=== PATIENT | female | born 1955 | race Hispanic/Latino ===

== ENCOUNTER 2017-02-18 17:20 | Observation (INO) | payer MEDICARE, OTHER ==
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
[2017-02-18 20:30] LABS: RBC URINE 17 /hpf (0-3); URINE BACTERIA FEW (<OCC); URINE BILIRUBIN NEGATIVE (NEGATIVE); URINE BLOOD SMALL (NEGATIVE); URINE COLOR YELLOW (YELLOW); URINE GLUCOSE (UA) NEG (Normal); URINE KETONE NEGATIVE (NEGATIVE); URINE LEUKOCYTE ESTERASE NEG Leu/uL (Negative); URINE PROTEIN 30 mg/dL (NEGATIVE); URINE UROBILINOGEN 0.2-1.0 mg/dL (0.2-1.0); WBC URINE 2 /hpf (0-5)
--- NOTE | 2017-02-18 20:35 | ED PDOC ---
- Laboratory Results Result Diagrams: 02/18/17 22:42 02/18/17 22:42 - ECG ECG: Positive for: Viewed By Me (reviewed by ED attending) ECG Rhythm: Positive for: Sinus Rhythm O2 Sat by Pulse Oximetry: 99 Pulse Ox Interpretation: Normal - Radiology X-Ray: Viewed By Me X-Ray Interpretation: No Acute Disease Medical Decision Making Medical Decision Making: Patient medically stable for psych transfer Disposition - Clinical Impression Clinical Impression: Psychoses - POA Present On Arrival: None - Disposition Disposition: Other Institution ([facility]) Disposition Time: 04:37 Condition: STABLE ED OBSERVATION Date of observation admission: 02/18/17 Time of observation admission: 20:00 - Observation admission statement Patient is being placed in observation because:: paranoia - Goals of Observation Goals of observation are:: obtain [facility] eval - Progress Note Progress Note: 02/18/17 20:34 patient resting comfortably; pending labs 02/19/17 22:30 Patient awake, resting comfortably 00:30 Patient sleeping 2:30 Patient sleeping 4:30 Patient evaluated and accepted by [facility]
[2017-02-18 22:46] LABS: HEMATOCRIT 38.1 % (34.0-47.0); MEAN CELL VOLUME 93.5 fl (81.0-99.0); MEAN CORPUSCULAR HGB CONC 33.2 g/dL (33.0-37.0); RED CELL DISTRIBUTION WIDTH 12.5 % (11.5-14.5)
[2017-02-18 23:02] LABS: ALB/GLOB RATIO 1.2 (1.0-2.1); ALCOHOL SERUM < 10 mg/dl (0-10); ALKALINE PHOSPHATASE 70 U/L (38-126); ALT/SGPT 25 U/L (9-52); AST/SGOT 25 U/L (14-36); BILIRUBIN,TOTAL 0.4 mg/dl (0.2-1.3); BLOOD UREA NITROGEN 17 mg/dl (7-17); CARBON DIOXIDE 27 mmol/L (22-30); CHLORIDE 103 mmol/L (98-107); GFR AFRICAN-AMERICAN > 60; GLUCOSE,RANDOM 88 mg/dL (65-105); POTASSIUM 3.8 MMOL/L (3.6-5.0); SODIUM 145 mmol/l (132-148); TOTAL PROTEIN 7.2 G/DL (6.3-8.2)
--- NOTE | 2017-02-19 05:46 | ED PDOC ---
- Laboratory Results Result Diagrams: 02/18/17 22:42 02/18/17 22:42 - ECG O2 Sat by Pulse Oximetry: 99 Medical Decision Making Medical Decision Making: pt recd pending bed at [facility]. Cooperative in ED. Will endorse to Dr Haq pending bed availability. Disposition Counseled Patient/Family Regarding: Studies Performed, Diagnosis - Clinical Impression Clinical Impression: Psychoses - POA Present On Arrival: None - Disposition Disposition: Transfer of Care Disposition Time: 06:55 Condition: STABLE
--- NOTE | 2017-02-19 07:08 | CARD ---
APPROVED REPORT EKG Measurement Heart [id number] [id number] <Conclusion> Normal sinus rhythm Possible Left atrial enlargement Left ventricular hypertrophy Abnormal ECG
--- NOTE | 2017-02-19 07:14 | ED PDOC ---
- Laboratory Results Result Diagrams: 02/18/17 22:42 02/18/17 22:42 - ECG O2 Sat by Pulse Oximetry: 99 Medical Decision Making Medical Decision Making: Time: 0700 Patient signed out by Dr. Angel pending [facility] bed availability. Patient has been cleared and accepted by [facility] Scribe Attestation: Documented by Linda Hunt acting as a scribe for Heriberto Haq MD MD Scribe Attestation: All medical record entries made by the Scribe were at my direction and personally dictated by me. I have reviewed the chart and agree that the record accurately reflects my personal performance of the history, physical exam, medical decision making, and the department course for this patient. I have also personally directed, reviewed, and agree with the discharge instructions and disposition. Disposition - Clinical Impression Clinical Impression: Psychoses - POA Present On Arrival: None - Disposition Disposition: Transfer of Care Disposition Time: 15:00 Condition: FAIR Patient Signed Over To: Angelica Soria Handoff Comments: pending bed at [facility].
--- NOTE | 2017-02-19 09:50 | RAD ---
HISTORY: clearance COMPARISON: Comparison is made to the previous study dated 08/08/2023 FINDINGS: LUNGS: No evidence of new infiltrate or consolidation in the lungs. Hyperinflation of the lungs is again noted. PLEURA: No significant pleural effusion identified, no pneumothorax apparent. CARDIOVASCULAR: The cardiac silhouette is prominent in size. OSSEOUS STRUCTURES: No significant abnormalities. VISUALIZED UPPER ABDOMEN: Normal. OTHER FINDINGS: None. IMPRESSION: No active disease. No significant interval change.
--- NOTE | 2017-02-19 13:02 | CP.PCM.CON ---
History of Present Illness - History of Present Illness History of Present Illness: psychiatry consult ordered by: er per protocol reason: psychosis cc: i am fine hpi: pt with schizophrenia and multiple admits to [facility]. brought to [place] by mobile outreach after concerns with neighbors regarding pt's behavior, which seems to be an ongoing issue. pt presented and paranoid, delusional and with impaired insight/judgment. she refused voluntary admisssion. currently she is aware of her pending transfer to [facility] and calming sitting in an er room. pt does not wish to offer any information and states she is fine and without any psychiatric problems. past psych: as above. she denies taking medications. substance abuse: denies and uds is negative social history: as per screening note. lives in . housing, disruptive. medical: cleared for transfer to [facility] mse: alert, oriented x 3. mood is anxious. affect constricted. paranoid. guarded. denies si/hi. denies a/v hallucinations at this time. she has recent reports of paranoid delusions and threatening behaviors with poor impulse control. poor i/j assessment: schizophrenia paranoid type recommendation: transfer to [facility] when bed available. Past Patient History - Past Social History Alcohol: None Drugs: Denies - CARDIAC Hx Hypertension: No - PULMONARY Hx Tuberculosis: No - NEUROLOGICAL Hx Seizures: No - HEMATOLOGICAL/ONCOLOGICAL Hx Human Immunodeficiency Virus (HIV): No - GENITOURINARY/GYNECOLOGICAL Hx Sexually Transmitted Disorders: No - PSYCHIATRIC Hx Depression: Yes Hx Paranoia: Yes Hx Schizophrenia: Yes - SURGICAL HISTORY Hx Section: Yes Hx Herniorrhaphy: Yes - ANESTHESIA Hx Anesthesia: Yes Hx Anesthesia Reactions: No Meds Allergies/Adverse Reactions: Allergies Allergy/AdvReac Type Severity Reaction Status Date / Time iodine Allergy RASH Verified 02/18/17 17:24 Results - Vital Signs Recent Vital Signs: Last Vital Signs Temp 98.3 F 02/19/17 07:35 Pulse 68 02/19/17 07:35 Resp 18 02/19/17 07:35 BP 121/60 02/19/17 07:35 Pulse Ox 98 02/19/17 07:35 - Labs Result Diagrams: 02/18/17 22:42 02/18/17 22:42 Labs: Laboratory Results - last 24 hr 02/18/17 02/18/17 20:20 22:42 WBC 6.0 RBC 4.07 Hgb 12.6 Hct 38.1 MCV 93.5 MCH 31.0 MCHC 33.2 RDW 12.5 Plt Count 193 Sodium 145 Potassium 3.8 Chloride 103 Carbon Dioxide 27 Anion Gap 19 BUN 17 Creatinine 0.6 L Est GFR ( Amer) > 60 Est GFR (Non-Af Amer) > 60 Random Glucose 88 Calcium 9.0 Total Bilirubin 0.4 AST 25 ALT 25 Alkaline Phosphatase 70 Total Protein 7.2 Albumin 4.0 Globulin 3.2 Albumin/Globulin Ratio 1.2 Urine Opiates Screen Negative Urine Methadone Screen Negative Ur Barbiturates Screen Negative Ur Phencyclidine Scrn Negative Ur Amphetamines Screen Negative U Benzodiazepines Scrn Negative U Oth Cocaine Metabols Negative U Cannabinoids Screen Negative Alcohol, Quantitative < 10
[2017-02-19 23:14] VITALS: RESP 16
--- NOTE | 2017-02-20 02:58 | ED PDOC ---
- Laboratory Results Result Diagrams: 02/18/17 22:42 02/18/17 22:42 - ECG O2 Sat by Pulse Oximetry: 97 Medical Decision Making Medical Decision Making: Patient s/o from Dr. Soria at 0000 pending [facility] screening. Patient is stable on re-evaluation. Patient s/o to Dr. Angel at 0700 pending admission to [facility]. Scribe Attestation: Documented by Palma Cheatham acting as a scribe for Ben Fernandez MD. Provider Scribe Attestation: All medical record entries made by the Scribe were at my direction and personally dictated by me. I have reviewed the chart and agree that the record accurately reflects my personal performance of the history, physical exam, medical decision making, and the department course for this patient. I have also personally directed, reviewed, and agree with the discharge instructions and disposition. Disposition - Clinical Impression Clinical Impression: Psychoses - POA Present On Arrival: None - Disposition Disposition: Transfer of Care Disposition Time: 07:00 Condition: STABLE Patient Signed Over To: Emory Angel III Handoff Comments: pending [facility] screening
--- NOTE | 2017-02-20 07:12 | ED PDOC ---
- Laboratory Results Result Diagrams: 02/18/17 22:42 02/18/17 22:42 <Radha Adams - Last Filed: 02/20/17 11:42> - Laboratory Results Result Diagrams: 02/18/17 22:42 02/18/17 22:42 - ECG O2 Sat by Pulse Oximetry: 99 <Emory Angel III - Last Filed: 02/20/17 11:49> Medical Decision Making <Radha Adams - Last Filed: 02/20/17 11:42> <Emory Angel III - Last Filed: 02/20/17 11:49> Medical Decision Making: Urine culture specimen shows likely contaminated sample. Lab recommends second culture is sent which was collected from patient. (Radha Adams) Time: 0700 Patient signed out by Dr. Fernandez pending bed availability at [facility] Transport in ED [id number] to transport to [facility]. UCx returned likely contaminant, re-ordered. Scribe Attestation: Documented by Linda Hunt acting as a scribe for Emory Angel DO MD Scribe Attestation: All medical record entries made by the Scribe were at my direction and personally dictated by me. I have reviewed the chart and agree that the record accurately reflects my personal performance of the history, physical exam, medical decision making, and the department course for this patient. I have also personally directed, reviewed, and agree with the discharge instructions and disposition. (Emory Angel III) Disposition <Radha Adams - Last Filed: 02/20/17 11:42> - POA Present On Arrival: None - Disposition Disposition: Other Institution ([facility]) Disposition Time: 11:40 <Emory Angel III - Last Filed: 02/20/17 11:49> - Clinical Impression Clinical Impression: Psychoses - Disposition Condition: STABLE
[2017-02-20 11:03] VITALS: BP 129/83; PULSE 74; TEMP 97.9
[2017-02-20 11:04] VITALS: O2SAT 99
== END 2017-02-20 11:49 | disposition short-term general hospital (02) ==
LOC: H.ER 17:20 → H.EROBSV 20:00 → INTOOBSV 20:00
PROVIDERS: ADMIT Emergency Medicine; ATTEND Emergency Medicine
DX: F20.0 Paranoid schizophrenia (principal); Z00.8 Encounter for other general examination
CPT/HCPCS: 36415; 71010; 80053; 81003; 85027; 87086; 93005; 99285; G0378; G0480

== ENCOUNTER 2018-02-08 15:26 | Inpatient (IN) | payer MEDICARE, MEDICAID ==
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
[2018-02-08 18:37] LABS: SQUAMOUS EPITHIAL < 1 /hpf (0-5); URINE BILIRUBIN NEGATIVE (NEGATIVE); URINE BLOOD NEGATIVE (NEGATIVE); URINE CLARITY CLOUDY (Clear); URINE COLOR AMBER (YELLOW); URINE GLUCOSE (UA) NEG (Normal); URINE LEUKOCYTE ESTERASE NEG Leu/uL (Negative); URINE PROTEIN 100 mg/dL (NEGATIVE); URINE UROBILINOGEN 0.2-1.0 mg/dL (0.2-1.0)
[2018-02-08 18:39] LABS: BASO % 0.4 % (0.0-2.0); EOS # 0.1 K/uL (0.0-0.7); EOS % 1.2 % (0.0-4.0); HEMOGLOBIN 12.9 g/dL (12.0-16.0); LYMPH # 0.9 K/uL (1.0-4.3); LYMPH % 15.8 % (20.0-40.0); MEAN CORPUSCULAR HEMOGLOBIN 31.1 pg (27.0-31.0); MEAN CORPUSCULAR HGB CONC 33.1 g/dL (33.0-37.0); MEAN PLATELET VOLUME 7.7 fl (7.2-11.7); MONO # 0.3 K/uL (0.0-0.8); MONO % 6.5 % (0.0-10.0); NEUT # 4.1 K/uL (1.8-7.0); NEUT % 76.1 % (50.0-75.0); NRBC % 0.1 % (0.0-0.0); RBC 4.14 Mil/uL (3.80-5.20); RED CELL DISTRIBUTION WIDTH 12.9 % (11.5-14.5); WHITE BLOOD COUNT 5.4 K/uL (4.8-10.8)
[2018-02-08 18:44] LABS: ALB/GLOB RATIO 1.2 (1.0-2.1); ALBUMIN 4.1 g/dL (3.5-5.0); ALT/SGPT 35 U/L (9-52); AST/SGOT 30 U/L (14-36); BLOOD UREA NITROGEN 14 mg/dl (7-17); CALCIUM 9.5 mg/dL (8.4-10.2); GFR AFRICAN-AMERICAN > 60; GFR NON-AFRICAN AMERICAN > 60
--- NOTE | 2018-02-08 18:50 | RAD ---
HISTORY: Medical clearance COMPARISON: 02/18/2017 FINDINGS: LUNGS: No active pulmonary disease. PLEURA: No significant pleural effusion identified, no pneumothorax apparent. CARDIOVASCULAR: No radiographic findings to suggest acute or significant cardiovascular disease. OSSEOUS STRUCTURES: No significant abnormalities. VISUALIZED UPPER ABDOMEN: Normal. OTHER FINDINGS: None. IMPRESSION: No active disease. No significant interval change compared to the prior examination(s).
[2018-02-08 18:54] LABS: BARBITURATES, UR NEGATIVE (NEGATIVE); BENZODIAZEPINES, UR NEGATIVE (NEGATIVE); OPIATES, UR NEGATIVE (NEGATIVE); PHENCYCLIDINE, UR NEGATIVE (NEGATIVE)
[2018-02-08 20:00] VITALS: O2SAT 98
[2018-02-08] MEDS ORDERED: Alum-Mag Hydrox-Simethicone Susp (30 mL) PO PRN (20:47)
[2018-02-08] MEDS ORDERED: Magnesium Hydroxide Susp 30 ml UD PO PRN (20:47)
[2018-02-08] MEDS ORDERED: Bismuth Subsalicylate 262 mg/15 ml Sus (240 ml) PO PRN (20:47)
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
[2018-02-09 06:56] LABS: HDL CHOLESTEROL 59 MG/DL (30-70)
[2018-02-09 07:08] LABS: LDL CHOLESTEROL 103 mg/dL (0-129)
[2018-02-09 07:11] LABS: IRON 79 ug/dL (37-170)
[2018-02-09 07:15] LABS: T4 5.97 ug/dl (5.5-11.0)
[2018-02-09 07:20] LABS: % IRON SATURATION 22 % (20-55); TOTAL IRON BINDING CAPACITY 355 ug/dL (250-450)
[2018-02-09 07:32] LABS: FERRITIN 16.9 ng/Ml (11.1-264.0)
--- NOTE | 2018-02-09 09:52 | CARD ---
APPROVED REPORT EKG Measurement Heart [id number] <Conclusion> Normal sinus rhythm Biatrial enlargement Left ventricular hypertrophy Abnormal ECG
[2018-02-09 17:30] LABS: FOLATE > 20.0 ng/mL
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
[2018-02-09] MEDS ORDERED: RISPERIDONE 0.25 MG ODT PO SCH (22:00)
--- NOTE | 2018-02-10 11:03 | PCM.PYCHPN ---
Psychiatric Progress Note - Psychiatric Progress Note Patient seen today, length of contact: Patient evaluated, case discussed with team, chart reviewed Patient Chief Complaint: "You have to stop them from trying to harm me." Problems Identified/Issues Discussed: Patient continues to be paranoid, delusional w/ poor insight and judgment, pressured speech and flight of ideas. She does not believe she needs treatment with antipsychotics, but states she will take Risperdal. Medication Change: Yes (Risperdal 0.5 mg PO HS) Medical Record Reviewed: Yes Consults ordered or reviewed: Medicine consult Mental Status Examination - Cognitive Function Orientation: Person, Place, Situation, Time Memory: Intact Attention: WNL Concentration: WNL Association: WNL Fund of Knowledge: [facility] Decription of patient's judgement and insights: Poor I/J - Mood Mood: Anxious - Affect Affect: Constricted - Speech Speech: Pressured - Formal Thought Process Formal Thought Process: Delusions, Paranoia, Flight of ideas Psychotic Thoughts and Behaviors: Paranoid + Persecutory delusions - Suicidal Ideation Suicidal Ideation: No - Homicidal Ideation Homicidal Ideation: No Goal/Treatment Plan - Goal/Treatment Plan Need for Continued Stay: Remain at risks for inpatient hospitalization, Discharge may exacerbated symptoms Progress Toward Problem(s) and Goals/Treatment Plan: Schizophrenia -Individual and group therapy -Psychoeducation -Risperdal o.5 mg PO HS -Medicine consult -Disposition planning Estimated Date of D/C: 02/15/18
--- NOTE | 2018-02-10 18:22 | CP.PCM.CON ---
History of Present Illness - History of Present Illness History of Present Illness: 62 yo female with no significant PMH admitted to [facility] because paranoid delusion. Review of Systems - Review of Systems All systems: reviewed and no additional remarkable complaints except (aside from those mentioned above, 12 point system review were negative by me) Past Patient History - Tetanus Immunizations Tetanus Immunization: Unknown - Past Social History Smoking Status: Former Smoker Alcohol: Occasional Drugs: Denies Home Situation {Lives}: Alone - CARDIAC Other/Comment: denies - PULMONARY Other/Comment: denies - NEUROLOGICAL Other/Comment: denies - HEENT Other/Comment: uses glasses - RENAL Other/Comment: denies - ENDOCRINE/METABOLIC Other/Comment: denies - HEMATOLOGICAL/ONCOLOGICAL Other/Comment: denies - INTEGUMENTARY Other/Comment: denies - MUSCULOSKELETAL/RHEUMATOLOGICAL Hx Falls: No Other/Comment: denies - GASTROINTESTINAL Other/Comment: denies - GENITOURINARY/GYNECOLOGICAL Other/Comment: denies - PSYCHIATRIC Hx Schizophrenia: Yes Hx Substance Use: No - SURGICAL HISTORY Hx Section: Yes Hx Herniorrhaphy: Yes - ANESTHESIA Hx Anesthesia: Yes Hx Anesthesia Reactions: No Hx Malignant Hyperthermia: No Has any member of the family had a problem w/ anesthesia?: No Meds Allergies/Adverse Reactions: Allergies Allergy/AdvReac Type Severity Reaction Status Date / Time iodine Allergy RASH Verified 02/08/18 15:29 - Medications Medications: Current Medications Acetaminophen (Tylenol 325mg Tab) 650 mg PO Q4 PRN PRN Reason: Pain, moderate (4-7) Last Admin: 02/10/18 07:06 Dose: 325 mg Al Hydrox/Mg Hydrox/Simethicone (Maalox Plus 30 Ml) 30 ml PO Q4 PRN PRN Reason: Dyspepsia Bismuth Subsalicylate (Pepto-Bismol) 524 mg PO Q4 PRN PRN Reason: Diarrhea Lorazepam (Ativan) 0.5 mg PO HS PRN PRN Reason: Insomnia Stop: 02/22/18 20:48 Lorazepam (Ativan) 0.5 mg PO Q6 PRN PRN Reason: Anixety/Agitation Stop: 02/22/18 20:48 Magnesium Hydroxide (Milk Of Magnesia) 30 ml PO HS PRN PRN Reason: Constipation Risperidone (Risperdal M-Tab) 0.5 mg PO HS CHANDNI Physical Exam - Constitutional Appears: No Acute Distress - Head Exam Head Exam: ATRAUMATIC - Eye Exam Eye Exam: absent: Scleral icterus - ENT Exam ENT Exam: Mucous Membranes Moist - Neck Exam Neck exam: Negative for: Meningismus - Respiratory Exam Respiratory Exam: absent: Rales, Rhonchi, Wheezes, Respiratory Distress - Cardiovascular Exam Cardiovascular Exam: REGULAR RHYTHM, +S1, +S2 - GI/Abdominal Exam GI & Abdominal Exam: Soft. absent: Tenderness - Rectal Exam Rectal Exam: Deferred - Extremities Exam Extremities exam: Negative for: calf tenderness, pedal edema - Back Exam Back exam: absent: tenderness - Neurological Exam Neurological exam: Alert, Oriented x3 - Psychiatric Exam Psychiatric exam: Normal Affect - Skin Skin Exam: Dry Results - Vital Signs Recent Vital Signs: Last Vital Signs Temp 98.1 F 02/10/18 16:04 Pulse 88 02/10/18 16:04 Resp 18 02/10/18 16:04 BP 123/74 02/10/18 16:04 Pulse Ox 98 02/08/18 19:59 - Labs Result Diagrams: 02/08/18 18:21 02/08/18 18:21 Assessment & Plan (1) Paranoid delusion Status: Acute Comment: psyche is managing
[2018-02-10] MEDS ORDERED: Risperidone M tab 0.5MG PO SCH (22:00)
--- NOTE | 2018-02-11 10:04 | PCM.PYCHPN ---
Psychiatric Progress Note - Psychiatric Progress Note Patient seen today, length of contact: Patient evaluated, case discussed with team, chart reviewed Patient Chief Complaint: "I'm sorry, but it's time for me to get a toolroom clerk." Problems Identified/Issues Discussed: Patient continues to be paranoid, delusional w/ poor insight and judgment. She discusses various persecutory delusions that the police and FBI are after her, that people keep calling the police on her and that her apartment has been destroyed by others. She does not believe she needs treatment with antipsychotics, but is agreeable to increasing the Risperdal at this time. Medication Change: Yes (Increase Risperdal to 1 mg PO HS) Medical Record Reviewed: Yes Consults ordered or reviewed: Medicine consult Mental Status Examination - Cognitive Function Orientation: Person, Place, Situation, Time Memory: Intact Attention: WNL Concentration: WNL Association: WNL Fund of Knowledge: [facility] Decription of patient's judgement and insights: Poor I/J - Mood Mood: Anxious - Affect Affect: Constricted - Speech Speech: Pressured - Formal Thought Process Formal Thought Process: Delusions, Paranoia Psychotic Thoughts and Behaviors: Paranoid + Persecutory delusions - Suicidal Ideation Suicidal Ideation: No - Homicidal Ideation Homicidal Ideation: No Goal/Treatment Plan - Goal/Treatment Plan Need for Continued Stay: Remain at risks for inpatient hospitalization, Discharge may exacerbated symptoms Progress Toward Problem(s) and Goals/Treatment Plan: Schizophrenia; patient needs continued hospitalization for treatment and stabilization -Individual and group therapy -Psychoeducation -Increase Risperdal to 1 mg PO HS -Medicine consult -Disposition planning Estimated Date of D/C: 02/16/18
[2018-02-11] MEDS ORDERED: Risperidone M tab 1 MG PO SCH (22:00)
--- NOTE | 2018-02-12 11:00 | PCM.PYCHPN ---
Psychiatric Progress Note - Psychiatric Progress Note Patient seen today, length of contact: Patient evaluated, case discussed with team, chart reviewed Patient Chief Complaint: "I'm sorry, but it's time for me to get a sponge fisherman." Problems Identified/Issues Discussed: Patient continues to be paranoid, delusional w/ poor insight and judgment. She continues to have various persecutory delusions. Medication Change: Yes (Increase Risperdal to 2 mg PO HS) Medical Record Reviewed: Yes Mental Status Examination - Cognitive Function Orientation: Person, Place, Situation, Time Memory: Intact Attention: WNL Concentration: WNL Association: WN Fund of Knowledge: [facility] Decription of patient's judgement and insights: Poor I/J - Mood Mood: Anxious - Affect Affect: Constricted - Speech Speech: Pressured - Formal Thought Process Formal Thought Process: Delusions, Paranoia Psychotic Thoughts and Behaviors: Paranoid + Persecutory delusions - Suicidal Ideation Suicidal Ideation: No - Homicidal Ideation Homicidal Ideation: No Goal/Treatment Plan - Goal/Treatment Plan Need for Continued Stay: Remain at risks for inpatient hospitalization, Discharge may exacerbated symptoms Progress Toward Problem(s) and Goals/Treatment Plan: Schizophrenia; patient needs continued hospitalization for treatment and stabilization -Individual and group therapy -Psychoeducation -Increase Risperdal to 2 mg PO HS -Medicine consult -Disposition planning Estimated Date of D/C: 02/16/18
[2018-02-12] MEDS: Risperidone M TAB 2 MG PO SCH (21:12)
--- NOTE | 2018-02-13 13:37 | PCM.PYCHPN ---
Psychiatric Progress Note - Psychiatric Progress Note Patient seen today, length of contact: Patient evaluated, case discussed with team, chart reviewed Patient Chief Complaint: pt has been unit staff continue to report pt is paranoid that neighbors are trying to poison her denies ill will. pt has been receiving a gradual inncrease risperdal-has been adherent with meds, seen on unit, team has been in contact with insurance related to after care, appears pt has deferred community services in past, chain sales representative from insurance (cathryn) scheduled to visit pt on [phone] on 3ns. . Problems Identified/Issues Discussed: alteration in mood alteration in self care Medical Problems: per chart Diagnostic Results: per psychiatry per medicine per nursing per social media director Medication Change: No Medical Record Reviewed: Yes Consults ordered or reviewed: per hospitalist Mental Status Examination - Cognitive Function Orientation: Person, Place, Situation, Time Memory: Intact Attention: WNL Concentration: WNL Association: WNL Fund of Knowledge: [facility] Decription of patient's judgement and insights: impaired - Mood Mood: Anxious - Affect Affect: Constricted - Speech Speech: Pressured - Formal Thought Process Formal Thought Process: Delusions, Paranoia - Suicidal Ideation Suicidal Ideation: No - Homicidal Ideation Homicidal Ideation: No Goal/Treatment Plan - Goal/Treatment Plan Need for Continued Stay: Remain at risks for inpatient hospitalization, Discharge may exacerbated symptoms Progress Toward Problem(s) and Goals/Treatment Plan: inpt admission per attending vital signs and clinical observation per protocol and per clinical status prns per unit protocol adjust meds per status team may consider long acting injectable if pt agreeable prior to discharge discharge planning in progress Estimated Date of D/C: 02/16/18 - Smoking Cessation Smoking Cessation Initiated: No Reason for not providing: pt defers
[2018-02-13] MEDS: Risperidone M TAB 2 MG PO SCH (21:04)
[2018-02-14] MEDS: Risperidone M TAB 2 MG PO SCH (21:03)
--- NOTE | 2018-02-14 21:03 | PCM.PYCHPN ---
Psychiatric Progress Note - Psychiatric Progress Note Patient seen today, length of contact: Patient evaluated, case discussed with team, chart reviewed Patient Chief Complaint: pt seen spoke with reports that for 10 yr since living where she is there have been noises, people banking no [place]inojosa door, when police come they climb over railings of next apartment [facility], pt has been been calling police weekly, at times believes at times could it be like the mafia, or other people reports when living in [facility] some family involved some activity related to guns denies personal involvement, reports with risperdal is a little calmer been unit staff continue to report pt is paranoid that neighbors are trying to poison her denies ill will. pt has been receiving a gradual inncrease risperdal- has been adherent with meds, seen on unit, team has been in contact with insurance related to after care, appears pt has deferred community services in past, field support representative from insurance (cathryn) scheduled to visit pt on [phone] on 3ns. . Problems Identified/Issues Discussed: alteration in mood alteration in self care Medical Problems: per chart Diagnostic Results: per psychiatry per medicine per nursing per social work faculty member DSM 5 Symptoms Update: paranoia somewhat less Medication Change: No Medical Record Reviewed: Yes Consults ordered or reviewed: pt seen by hospitalist Mental Status Examination - Cognitive Function Orientation: Person, Place, Situation, Time Memory: Intact Attention: WNL Concentration: WNL Association: WNL Fund of Knowledge: WN Decription of patient's judgement and insights: impaired - Mood Mood: Anxious - Affect Affect: Constricted - Speech Speech: Pressured - Formal Thought Process Formal Thought Process: Delusions, Paranoia - Suicidal Ideation Suicidal Ideation: No - Homicidal Ideation Homicidal Ideation: No Goal/Treatment Plan - Goal/Treatment Plan Need for Continued Stay: Remain at risks for inpatient hospitalization, Discharge may exacerbated symptoms Progress Toward Problem(s) and Goals/Treatment Plan: inpt admission per attending vital signs and clinical observation per protocol and per clinical status prns per unit protocol adjust meds per status team may consider long acting injectable if pt agreeable prior to discharge discharge planning in progress Estimated Date of D/C: 02/16/18 - Smoking Cessation Smoking Cessation Initiated: No Reason for not providing: pt defers
--- NOTE | 2018-02-15 11:49 | PCM.PYCHPN ---
Psychiatric Progress Note - Psychiatric Progress Note Patient seen today, length of contact: Patient evaluated, case discussed with team, chart reviewed Patient Chief Complaint: "I'm okay." Problems Identified/Issues Discussed: Patient continues to have paranoia, but her delusions seem to be fixed. She is less pressured to talk about them. She has been compliant with Risperdal. She denies ideation to harm self or others. She reports her mood is neutral and she is goal oriented towards discharge. NO AH/VH/SI/HI. We discussed continued titration of Risperdal and likely discharge to home tomorrow w/ outpatient follow-up. Medication Change: Yes (Increase Risperdal to 3 mg PO HS) Medical Record Reviewed: Yes Consults ordered or reviewed: Medicine consult Mental Status Examination - Cognitive Function Orientation: Person, Place, Situation, Time Memory: Intact Attention: WNL Concentration: WNL Association: WNL Fund of Knowledge: [facility] Decription of patient's judgement and insights: Poor I/ Fair J - Mood Mood: Neutral - Affect Affect: Broad - Speech Speech: Appropriate - Formal Thought Process Formal Thought Process: Paranoia Psychotic Thoughts and Behaviors: +Paranoia - Suicidal Ideation Suicidal Ideation: No - Homicidal Ideation Homicidal Ideation: No Goal/Treatment Plan - Goal/Treatment Plan Need for Continued Stay: Remain at risks for inpatient hospitalization, Discharge may exacerbated symptoms Progress Toward Problem(s) and Goals/Treatment Plan: Schizophrenia; patient needs continued hospitalization for treatment and stabilization -Individual and group therapy -Psychoeducation -Increase Risperdal to 3 mg PO HS -Medicine consult -Disposition planning- likely discharge to home tomorrow w/ outpatient follow-up Estimated Date of D/C: 02/16/18
[2018-02-15 16:07] VITALS: BP 116/72; PULSE 77; RESP 19; TEMP 97.7
--- NOTE | 2018-02-16 09:39 | PCM.PYCHDC ---
Mental Status Examination - Mental Status Examination Orientation: Person, Place, Situation, Time Memory: Intact Mood: Neutral Affect: Broad Speech: Appropriate Attention: WNL Concentration: WNL Association: WNL Fund of Knowledge: WNL Formal Thought Process: Paranoia (Chronic fixed paranoia, but patient denies ideation to harm self or others and has been in good behavioral control; good impulse control) Description of patient's judgement and insight: Fair I/J Psychotic Thoughts and Behaviors: No AH/VH Suicidal Ideation: No Current Homicidal Ideation?: No Discharge Summary - Discharge Note Reason for Hospitalization: As per initial HPI: "PT PRESENTED A 62Y/O FEMALE BROUGHT TO THIS ER BY [facility] AFTER PT REPEATEDLY CALLING 911 AND REPORTING THAT SOMEONE KEEPS KNOCKING AT HER DOOR. PT REPORTED THAT HER NEIGHBOR IS A TERRORIST AND THAT HE CONSTANTLY KEEPS HIS CURTAIN OPEN SO THAT SHE CAN SEE HIM BUILD THINGS TO USE TO HARM HER WITH. SHE REPORTED THAT HE IS MENTALLY ILL AND IS CONSTANTLY KNOCKING ON HER DOOR AT ALL TIMES OF THE DAY AND NIGHT. SHE REPORTED THAT SHE IS CONSTANTLY CALLING THE POLICE BECASUE THEY ARE SUPPOSED TO PROTECT HER BUT THAT THERE ARE 7 [employer] POLICE THAT TORMENT HER. SHE REPORTED THAT THEY HAVE KEYS TO HER APARTMENT AND THEY COME INTO HER APARTMENT AT ALL TIMES OF THE NIGHT AND ABRUPTLY WAKE HER UP WITH THEIR FLASH LIGHTS IN HER FACE AND THEN JUMP OUT OF THE [place] BEFORE HER CAN IDENTIFY THEM. SHE REPORTED THAT WHEN SHE GETS CLOSE TO IDENTIFYING THEM THEY THEN BRING HER TO THE HOSPITAL AND MAKE HER SEEM CRAZY." Consultations:: List each consultation separately and include: 1. Reason for request. 2. Findings. 3. Follow-up Consultations: Medicine consult Summary of Hospital Course include:: 1. Description of specific treatment plan utilized for patients during their course of treatmen. 2. Summarize the time- course for resolution of acute symptoms and/or regressed behaviors. 3. Describe issues identified and worked on during hospitalization. 4. Describe medication utilized. 5. Describe medical problems identified and treated. 6. Reassessment of suicide risk Summary of Hospital Course: Patient was admitted to the psychiatry unit. She was stabilized on Risperdal 3 mg PO HS. She has reduced paranoia and is less fixated on her chronic paranoid beliefs. NO AH/VH/SI/HI, +good impulse control. Patient was offered [facility] aftercare but she refused. Patient is agreeable to outpatient psychiatric follow-up. Psychoeducation provided on the importance of continued treatment with Risperdal and outpatient treatment. - Diagnosis (1) Schizophrenia Current Visit: Yes Status: Chronic - Final Diagnosis (DSM 5) Condition upon Discharge: STABLE DSM 5: Schizophrenia Disposition: HOME/ ROUTINE Follow-up Treatment Plan: -Continue Risperdal 3 mg PO HS; outpatient psychiatric follow-up upon discharge Prescriptions/Medication Reconciliation: risperiDONE [RisperDAL Tab] 3 mg PO HS #30 tab - Smoking Cessation Smoking Cessation Medication prescribed: No Reason for not providing: Not indicated - Antipsychotic Medications Pt discharged on 2 or more routine antipsychotic medications: No
== END 2018-02-16 13:20 | disposition home or self-care (01) | DRG 885 ==
LOC: H.ER 15:26 → H.ERHOLD 19:21 → H.STEP 20:41
PROVIDERS: ADMIT Psychiatry & Neurology Psychiatry; ATTEND Psychiatry & Neurology Psychiatry
PROC: GZHZZZZ Group Psychotherapy (ICD-10-PCS; principal; 2018-02-09)
PROC: GZ51ZZZ Individual Psychotherapy, Behavioral (ICD-10-PCS; 2018-02-09)
DX: F20.9 Schizophrenia, unspecified (principal); F32.9 Major depressive disorder, single episode, unspecified; F60.9 Personality disorder, unspecified; Z79.899 Other long term (current) drug therapy; Z87.891 Personal history of nicotine dependence